=== PATIENT | male | born 1945 | race Caucasian/White ===

== ENCOUNTER 2020-12-24 06:58 | Day surgery (SDC) | payer OTHER ==
[2020-12-24] VITALS (9 sets, daily range): BP systolic 86–116; BP diastolic 61–78
[~2020-12-24] VITALS: Ht 182.9 cm; Wt 93.0 kg
[~2020-12-24 06:58] MED LIST: ASPI-543 PO; FINA5TAB4 PO; SILD20TA12 OR; TERA10CA36 PO
[2020-12-24] MEDS ORDERED: LIDOCAINE 2%HCL (LOCAL ANESTH.) INJ 20ML MDV ONE (07:41)
[2020-12-24] MEDS ORDERED: ANGIOMAX 250 MG VIAL IV ONE (08:24)
[2020-12-24] MEDS ORDERED: MIDAZOLAM HCL 2MG/2ML 2ml VIAL (1mg/ml) ONE (08:25)
[2020-12-24] MEDS ORDERED: SODIUM CHL 0.9% 0 ML ONE (08:25)
[2020-12-24] MEDS ORDERED: fentaNYL CITRATE 100 MCG/2 ML VL ONE (08:25)
[2020-12-24] MEDS ORDERED: VERAPAMIL 2.5MG/ML INJ 2ML VIAL IV ONE (08:43)
[2020-12-24] MEDS ORDERED: HEPARIN SODIUM (PORCINE) 5000 UNITS/ML 1ML VIAL ONE (08:43)
[2020-12-24] MEDS ORDERED: NITROGLYCERIN 5MG/ML 10ML VIAL IV ONE (08:46)
== END 2020-12-24 12:25 | disposition home or self-care (01) ==
LOC: CATH 06:58
PROVIDERS: ATTEND Internal Medicine Cardiovascular Disease
DX: I27.20 Pulmonary hypertension, unspecified (principal); I25.10 Atherosclerotic heart disease of native coronary artery without angina pectoris; I13.10 Hypertensive heart and chronic kidney disease without heart failure, with stage 1 through stage 4 chronic kidney disease, or unspecified chronic kidney disease; I50.9 Heart failure, unspecified; N18.2 Chronic kidney disease, stage 2 (mild); J44.9 Chronic obstructive pulmonary disease, unspecified; Z79.82 Long term (current) use of aspirin; Z20.822 Contact with and (suspected) exposure to COVID-19; Z98.890 Other specified postprocedural states; Z79.899 Other long term (current) drug therapy
CPT/HCPCS: 93460; 99152; 99153; C1751; J2250; J3490